=== PATIENT | female | born 1980 | race African-American/Black ===

== ENCOUNTER 2017-02-21 15:40 | Emergency (ER) | payer SELFPAY ==
[~2017-02-21] VITALS: Ht 162.6 cm; Wt 90.9 kg
[~2017-02-21 15:40] MED LIST: CEPHALEXIN500 M1 PO; FLEXERIL 1010 MG/TAB PO; FLEXERIL10 MG PO; MOTRIN 200200 MG/TAB PO; MOTRIN 800800 MG/TAB PO; MOTRIN600 MG PO; NO HOME MEDICATIONS; NORCO 325 MG-51 TAB PO; NORCO 325 MG-7.1 TAB PO; OCUFLOX OPHTH DR5 ML OD; PERCOCET 325 MG1 TA2 PO; TAMIFLU 75MG75 MG PO; ZESTRIL 10MG10 MG PO
[2017-02-21 15:42] VITALS: BP 182/100; PULSE 93; TEMP 98.6
[2017-02-21] MEDS ORDERED: FLEXERIL 1010 MG/TAB PO (16:30)
[2017-02-21] MEDS ORDERED: NORCO 325 MG-51 TAB PO (16:30)
== END 2017-02-21 17:27 | disposition home or self-care (01) ==
LOC: COL.ER 15:40
DX: M54.41 Lumbago with sciatica, right side (principal); M62.830 Muscle spasm of back
CPT/HCPCS: J1885; J2360

== ENCOUNTER 2018-01-02 08:59 | Emergency (ER) | payer SELFPAY ==
[~2018-01-02] VITALS: Ht 162.6 cm; Wt 90.9 kg
[2018-01-02] MEDS ORDERED: ADVIL200 MG PO (09:11)
[2018-01-02 09:50] LABS: BASO # 0.1 (0.0-0.2); BASO % 0.6 % (0.0-2.0); EOS % 0.5 % (0-4.0); GRAN # 5.7 (1.4-6.5); GRAN % 65.4 % (42.2-75.2); HEMATOCRIT 38.5 % (37.0-47.0); HEMOGLOBIN 12.7 g/dl (12.5-16.0); LYMPH # 2.3 (1.2-3.4); LYMPH % 26.1 % (20.0-51.0); MEAN CELL VOLUME 87 fl (80.0-100.0); MEAN CORPUSCULAR HEMOGLOBIN 29 pg (27.0-31.0); MEAN CORPUSCULAR HGB CONC 33 g/dl (33.0-37.0); MEAN PLATELET VOLUME 11.2 fl (7.4-10.4); MONO # 0.6 (0.1-0.6); MONO % 7.2 % (1.7-9.3); PLATELET COUNT 248 K/mm3 (130-400); RED BLOOD COUNT 4.43 M/mm3 (4.10-5.30)
[2018-01-02 10:03] LABS: BILIRUBIN,TOTAL 0.5 mg/dL (0.0-1.0); CALCIUM 9.3 mg/dL (8.4-10.2); CREATININE, serum 0.68 mg/dL (0.52-1.25); POTASSIUM 3.2 mmol/L (3.4-5.0); TOTAL PROTEIN 7.6 gm/dL (6.4-8.2)
[2018-01-02 10:05] LABS: C-REACTIVE PROTEIN 0.5 mg/dL (0.0-0.9)
[2018-01-02 10:19] LABS: COLLECTION METHOD CLEAN CATCH
[2018-01-02 11:20] LABS: PH 6 (5-8); URINE APPEARANCE Hazy; URINE COLOR Straw; URINE PROTEIN(semi-quant) 1+ (NEGATIVE)
[2018-01-02 11:21] LABS: URINE BILIRUBIN Negative (NEGATIVE); URINE BLOOD Negative (NEGATIVE); URINE GLUCOSE Negative (NEGATIVE); URINE KETONE Trace (NEGATIVE); URINE LEUKOCYTE ESTERASE Negative (NEGATIVE); URINE NITRATE Negative (NEGATIVE); URINE UROBILINOGEN Negative (NEGATIVE)
[2018-01-02] MEDS ORDERED: PHENERGAN 25 TA25 MG PO (11:27)
[2018-01-02] MEDS ORDERED: PRINIVIL10 MG PO (11:27)
[2018-01-02 11:38] VITALS: BP 162/86; PULSE 76; TEMP 98.9
[2018-01-02 11:52] LABS: AMORPHOUS CRYSTAL Present /uL; SQUAMOUS EPITHELIAL 0-2 /hpf
[2018-01-02 11:53] LABS: URINE BACTERIA Rare /hpf
== END 2018-01-02 11:38 | disposition home or self-care (01) ==
LOC: COL.ER 08:59
PROVIDERS: Physician Assistant
DX: R10.84 Generalized abdominal pain (principal); R11.2 Nausea with vomiting, unspecified; R19.7 Diarrhea, unspecified; I10 Essential (primary) hypertension
CPT/HCPCS: J2270; J2405; J7030

== ENCOUNTER 2018-03-04 17:21 | Emergency (ER) | payer SELFPAY ==
[~2018-03-04] VITALS: Ht 162.6 cm; Wt 95.5 kg
[~2018-03-04 17:21] MED LIST changes: +ADVIL200 MG PO; +PHENERGAN 25 TA25 MG PO; +PRINIVIL10 MG PO
[2018-03-04 17:23] VITALS: BP 141/92; TEMP 99.7
[2018-03-04] MEDS ORDERED: NORCO 325 MG-51 TAB PO (18:38)
[2018-03-04] MEDS ORDERED: FLEXERIL 1010 MG/TAB PO (18:38)
[2018-03-04 18:46] VITALS: PULSE 86
== END 2018-03-04 18:46 | disposition home or self-care (01) ==
LOC: COL.ER 17:21
DX: M54.31 Sciatica, right side (principal); I10 Essential (primary) hypertension; F17.210 Nicotine dependence, cigarettes, uncomplicated; Z98.890 Other specified postprocedural states
CPT/HCPCS: J1885; J2360

== ENCOUNTER 2018-09-01 | Emergency (ER) | payer SELFPAY ==
[~2018-09-01] VITALS: Ht 162.6 cm; Wt 96.8 kg
[2018-09-01 00:05] VITALS: BP 172/95; TEMP 99.2
[2018-09-01] MEDS ORDERED: NORCO 325 MG-51 TAB PO (01:23)
[2018-09-01] MEDS ORDERED: FLEXERIL 1010 MG/TAB PO (01:23)
[2018-09-01 01:34] VITALS: PULSE 76
== END 2018-09-01 01:36 | disposition home or self-care (01) ==
LOC: COL.ER
DX: M54.6 Pain in thoracic spine (principal); F17.210 Nicotine dependence, cigarettes, uncomplicated; I10 Essential (primary) hypertension; G43.909 Migraine, unspecified, not intractable, without status migrainosus
CPT/HCPCS: J3010

== ENCOUNTER 2018-11-20 17:33 | Emergency (ER) | payer SELFPAY ==
[~2018-11-20] VITALS: Ht 162.6 cm; Wt 95.5 kg
[2018-11-20 17:44] VITALS: BP 177/96; TEMP 98.9
[2018-11-20 17:59] LABS: COLLECTION METHOD CLEAN CATCH
[2018-11-20 18:23] LABS: MUCOUS Present /lpf; PH 5 (5-8); URINE APPEARANCE Clear; URINE BACTERIA Occasional /hpf; URINE BILIRUBIN Negative (NEGATIVE); URINE BLOOD Negative (NEGATIVE); URINE COLOR Yellow; URINE GLUCOSE Negative (NEGATIVE); URINE KETONE Negative (NEGATIVE); URINE LEUKOCYTE ESTERASE Negative (NEGATIVE); URINE NITRATE Negative (NEGATIVE); URINE PROTEIN(semi-quant) 1+ (NEGATIVE)
[2018-11-20] MEDS ORDERED: NORCO 325 MG-7.1 TAB PO (20:11)
[2018-11-20 20:20] VITALS: PULSE 79
== END 2018-11-20 20:22 | disposition home or self-care (01) ==
LOC: COL.ER 17:33
PROVIDERS: Emergency Medicine
DX: M54.41 Lumbago with sciatica, right side (principal); G89.29 Other chronic pain; I10 Essential (primary) hypertension; G43.909 Migraine, unspecified, not intractable, without status migrainosus; F12.10 Cannabis abuse, uncomplicated; F17.210 Nicotine dependence, cigarettes, uncomplicated

== ENCOUNTER → 2019-05-31 | Outpatient (CLI) | payer OTHER | LOC: COL.RAD 17:40 | DX: M54.31 Sciatica, right side (principal); M54.32 Sciatica, left side; M54.9 Dorsalgia, unspecified ==

== ENCOUNTER 2019-07-15 08:30 | Outpatient (RCR) | payer OTHER | END 2019-07-30 18:34 | disposition home or self-care (01) | LOC: WSPT 08:30 | DX: M54.41 Lumbago with sciatica, right side (principal); M54.42 Lumbago with sciatica, left side ==

== ENCOUNTER 2020-03-20 16:26 | Emergency (ER) | payer OTHER ==
[~2020-03-20] VITALS: Ht 162.6 cm; Wt 100.0 kg
[2020-03-20 16:31] VITALS: TEMP 98.3
[2020-03-20 16:52] LABS: BASO % 0.3 % (0.0-2.0); EOS # 0.1 (0.0-0.7); EOS % 0.5 % (0-4.0); GRAN # 9.2 (1.4-6.5); GRAN % 65.7 % (42.2-75.2); HEMOGLOBIN 12.1 g/dl (12.5-16.0); LYMPH # 3.5 (1.2-3.4); LYMPH % 24.9 % (20.0-51.0); MEAN CELL VOLUME 86 fl (80.0-100.0); MEAN CORPUSCULAR HEMOGLOBIN 29 pg (27.0-31.0); MEAN CORPUSCULAR HGB CONC 33 g/dl (33.0-37.0); MEAN PLATELET VOLUME 10.7 fl (7.4-10.4); MONO # 1.2 (0.1-0.6); MONO % 8.2 % (1.7-9.3); PLATELET COUNT 259 K/mm3 (130-400); RED BLOOD COUNT 4.25 M/mm3 (4.10-5.30); REDCELL DISTRIBUTION WIDTH-CV 14.6 % (11.5-14.5)
[2020-03-20 16:53] LABS: HEMATOCRIT 36.4 % (37.0-47.0)
[2020-03-20 17:05] LABS: BILIRUBIN,TOTAL 0.5 mg/dL (0.0-1.0); C-REACTIVE PROTEIN 5.6 mg/dL (0.0-0.9); CALCIUM 9.4 mg/dL (8.4-10.2); CREATININE, serum 0.69 (0.52-1.25); POTASSIUM 3.1 mmol/L (3.4-5.0); TOTAL PROTEIN 7.8 gm/dL (6.4-8.2)
[2020-03-20] MEDS ORDERED: FLEXERIL 1010 MG/TAB PO (17:40)
[2020-03-20] MEDS ORDERED: PRINIVIL20 MG PO (17:41)
[2020-03-20] MEDS ORDERED: MOBIC15 MG PO (17:41)
[2020-03-20 18:28] VITALS: BP 137/75; PULSE 100
== END 2020-03-20 18:28 | disposition home or self-care (01) ==
LOC: COL.ER 16:26
PROVIDERS: Family Medicine
DX: R10.13 Epigastric pain (principal); I10 Essential (primary) hypertension; F17.210 Nicotine dependence, cigarettes, uncomplicated
CPT/HCPCS: C9113; J2270; J2405; J7120; Q9967

== ENCOUNTER → 2021-07-25 | Outpatient (CLI) | payer OTHER ==
[~2021-07-25] MED LIST changes: +IBU600 MG PO; +LEVAQUIN 5500 MG/TA1 PO; +MOBIC15 MG PO; +PRINIVIL20 MG PO; +ROXICODONE 55 MG/TAB PO; +TYLENOL 500MG500 MG PO
== END ==
LOC: ZCOL.LAB 16:11
DX: L08.9 Local infection of the skin and subcutaneous tissue, unspecified (principal)

== ENCOUNTER → 2021-08-06 | Outpatient (CLI) | payer OTHER ==
[2021-08-06 11:14] LABS: BASO % 0.4 % (0.0-2.0); EOS # 0.1 (0.0-0.7); EOS % 0.9 % (0-4.0); GRAN # 8.4 (1.4-6.5); LYMPH % 17.3 % (20.0-51.0); MEAN CELL VOLUME 78 fl (80.0-100.0); MEAN CORPUSCULAR HGB CONC 32 g/dl (33.0-37.0); MEAN PLATELET VOLUME 9.1 fl (7.4-10.4); MONO # 0.8 (0.1-0.6); PLATELET COUNT 444 K/mm3 (130-400); RED BLOOD COUNT 3.16 M/mm3 (4.10-5.30); REDCELL DISTRIBUTION WIDTH-CV 17.9 % (11.5-14.5)
[2021-08-06 11:15] LABS: HEMATOCRIT 24.7 % (37.0-47.0); HEMOGLOBIN 7.9 g/dl (12.5-16.0); MEAN CORPUSCULAR HEMOGLOBIN 25 pg (27.0-31.0)
[2021-08-06 11:28] LABS: ALBUMIN 3.9 gm/dL (3.5-5.0); BILIRUBIN,TOTAL 0.1 mg/dL (0.0-1.0); C-REACTIVE PROTEIN 3.8 mg/dL (0.0-0.9); CALCIUM 10.1 mg/dL (8.4-10.2); CREATININE, serum 1.6 (0.52-1.25); POTASSIUM 5.5 mmol/L (3.4-5.0); TOTAL PROTEIN 7.9 gm/dL (6.4-8.2)
[2021-08-06 11:36] LABS: ERYTHROCYTE SEDIMENTATION RATE 101 mm/hr (0-20)
== END ==
LOC: COL.RAD 09:54
PROVIDERS: Nurse Practitioner
DX: J43.9 Emphysema, unspecified (principal); B99.9 Unspecified infectious disease; Z90.710 Acquired absence of both cervix and uterus
CPT/HCPCS: Q9967

== ENCOUNTER 2021-08-08 08:49 | Day surgery (SDC) | payer OTHER ==
[~2021-08-08] VITALS: Ht 162.6 cm; Wt 98.6 kg
[~2021-08-08 08:49] MED LIST changes: -LEVAQUIN 5500 MG/TA1 PO
[2021-08-08] MEDS ORDERED: LEVAQUIN 5500 MG/TA1 PO (09:58)
[2021-08-08 10:14] VITALS: BP 113/57; PULSE 109; TEMP 98.5
[2021-08-08 12:00] VITALS: BP 112/41; PULSE 95; TEMP 97.6
--- NOTE | 2021-08-08 12:00 | NUR ---
Pt returns to [facility] from PACU, alert and oriented x3, VSS, reports pain minimal 2/10. Dressing clean and dry. Call light in reach. Side rails up x2.
[2021-08-08 12:15] VITALS: BP 114/47; PULSE 97
[2021-08-08 12:30] VITALS: BP 107/46; PULSE 98
--- NOTE | 2021-08-08 12:30 | NUR ---
Pt tolerates toast, applesauce, and grape juice well. Lab was successful with lab draw at 1207. Pt denies nausea. VSS. Awaiting lab results to be called to Dr. Ojeda before discharge. Pt's ride Chris nuno. Call light in reach.
[2021-08-08 12:39] LABS: MEAN CELL VOLUME 80 fl (80.0-100.0); MEAN CORPUSCULAR HGB CONC 32 g/dl (33.0-37.0); MEAN PLATELET VOLUME 9.2 fl (7.4-10.4); PLATELET COUNT 398 K/mm3 (130-400); RED BLOOD COUNT 2.86 M/mm3 (4.10-5.30); REDCELL DISTRIBUTION WIDTH-CV 18.1 % (11.5-14.5)
[2021-08-08 12:45] LABS: HEMOGLOBIN 7.3 g/dl (12.5-16.0); MEAN CORPUSCULAR HEMOGLOBIN 26 pg (27.0-31.0)
[2021-08-08 12:48] LABS: CALCIUM 9.4 mg/dL (8.4-10.2); CREATININE, serum 1.8 (0.52-1.25); POTASSIUM 4.7 mmol/L (3.4-5.0)
--- NOTE | 2021-08-08 13:05 | NUR ---
Dr. Ojeda notified of lab results and is going to come talk with the pt. Dr. Cruz to bedside and talks with pt and follow up scheduled for friday. Pt ready to be discharged. Discharge instructions given and IV discontinued. Pt was already up to the bathroom and voided easily. Pt taken out via wheelchair at 1330 and left in care of step richard Perez.
== END 2021-08-08 13:30 | disposition home or self-care (01) ==
LOC: SDCO 08:49
PROVIDERS: Surgery
DX: T81.89XA Other complications of procedures, not elsewhere classified, initial encounter (principal); I10 Essential (primary) hypertension; G43.909 Migraine, unspecified, not intractable, without status migrainosus; D64.9 Anemia, unspecified; E66.9 Obesity, unspecified
CPT/HCPCS: J0690; J1100; J1170; J1885; J2405; J2704; J3010; J7120

== ENCOUNTER → 2021-08-10 | Outpatient (CLI) | payer OTHER ==
[~2021-08-10] MED LIST changes: +LEVAQUIN 5500 MG/TA1 PO
== END ==
LOC: ZCOL.LAB 16:27
DX: T81.40XD Infection following a procedure, unspecified, subsequent encounter (principal)

== ENCOUNTER → 2021-08-21 | Outpatient (CLI) | payer OTHER ==
[2021-08-21 09:02] LABS: BASO % 0.2 % (0.0-2.0); EOS # 0.2 (0.0-0.7); EOS % 1.5 % (0-4.0); GRAN # 8.5 (1.4-6.5); GRAN % 68.8 % (42.2-75.2); LYMPH # 2.7 (1.2-3.4); LYMPH % 21.7 % (20.0-51.0); MEAN CELL VOLUME 81 fl (80.0-100.0); MEAN CORPUSCULAR HGB CONC 31 g/dl (33.0-37.0); MEAN PLATELET VOLUME 9.4 fl (7.4-10.4); MONO # 0.9 (0.1-0.6); MONO % 7.3 % (1.7-9.3); PLATELET COUNT 371 K/mm3 (130-400); RED BLOOD COUNT 2.94 M/mm3 (4.10-5.30); REDCELL DISTRIBUTION WIDTH-CV 19.9 % (11.5-14.5)
[2021-08-21 09:04] LABS: HEMATOCRIT 23.9 % (37.0-47.0); HEMOGLOBIN 7.4 g/dl (12.5-16.0); MEAN CORPUSCULAR HEMOGLOBIN 25 pg (27.0-31.0)
[2021-08-21 09:21] LABS: ALBUMIN 2.8 gm/dL (3.5-5.0); BILIRUBIN,TOTAL 0.1 mg/dL (0.2-1.2); C-REACTIVE PROTEIN 2.6 mg/dL (0.00-0.50); CREATININE, serum 0.77 mg/dL (0.57-1.11); POTASSIUM 3.9 mmol/L (3.5-4.5); TOTAL PROTEIN 6.8 gm/dL (6.2-8.1)
[2021-08-21 09:24] LABS: ERYTHROCYTE SEDIMENTATION RATE 61 mm/hr (0-20)
== END ==
LOC: COL.LAB 08:20
PROVIDERS: Nurse Practitioner
DX: B99.9 Unspecified infectious disease (principal)

== ENCOUNTER → 2023-08-07 | Outpatient (CLI) | payer OTHER | LOC: MC.RAD 15:11 | DX: Z12.31 Encounter for screening mammogram for malignant neoplasm of breast (principal) ==